=== PATIENT | male | born 1975 | race American Indian/Alaskan Native ===

== ENCOUNTER 2019-01-25 18:58 | Emergency (ER) | payer OTHER ==
[~2019-01-25] VITALS: Ht 177.8 cm; Wt 86.2 kg
--- OUTSIDE RECORDS SUMMARY | 2019-01-25 19:02 | XMS ---
PreManage Notification: FERNANDA GILBERT Security Vascular Physician Events No recent Security Events currently on file CRITERIA MET - [facility] CARE PROVIDERS There are no care providers on record at this time. Azeb has no Care Guidelines for this patient. Selena VISIT COUNT (12 MO.) 1 DASIA Salazar TOTAL 1 NOTE: Visits indicate total known visits. ED/C VISIT TRACKING (12 MO.) 01/25/2019 18:59 [facility] [place] TYPE: Emergency COMPLAINT: - BACK INJURY INPATIENT VISIT TRACKING (12 MO.) No inpatient visits to display in this time frame [email or web address]
== END 2019-01-25 20:25 | disposition home or self-care (01) ==
LOC: ED 18:58
DX: S39.012A Strain of muscle, fascia and tendon of lower back, initial encounter (principal); X50.0XXA Overexertion from strenuous movement or load, initial encounter
CPT/HCPCS: 96372; 99283; J1885

== ENCOUNTER 2019-12-31 10:53 | Emergency (ER) | payer OTHER ==
[~2019-12-31] VITALS: Ht 177.8 cm; Wt 86.2 kg
[2019-12-31] MEDS ORDERED: SUDOGEST30 MG PO (12:02)
== END 2019-12-31 12:12 | disposition home or self-care (01) ==
LOC: ED 10:53
DX: J06.9 Acute upper respiratory infection, unspecified (principal); Z20.828 Contact with and (suspected) exposure to other viral communicable diseases
CPT/HCPCS: 99283; C9803

== ENCOUNTER 2022-02-05 12:59 | Emergency (ER) | payer OTHER ==
[~2022-02-05] VITALS: Ht 177.8 cm; Wt 84.5 kg
[~2022-02-05 12:59] MED LIST: SUDOGEST30 MG PO
[2022-02-05] MEDS ORDERED: CIPRO500 MG PO (16:40)
== END 2022-02-05 16:54 | disposition home or self-care (01) ==
LOC: ED 12:59
DX: S91.331A Puncture wound without foreign body, right foot, initial encounter (principal); W45.0XXA Nail entering through skin, initial encounter; Z23 Encounter for immunization
CPT/HCPCS: 73630; 90715